=== PATIENT | male | born 1955 | race Caucasian/White ===

== ENCOUNTER 2020-04-04 08:24 | Emergency (ER) | payer OTHER ==
[2020-04-04 08:41] VITALS: BP 149/109; PULSE 100
--- NOTE | 2020-04-04 09:04 | EDM.PDOC ---
ED HPI GENERAL MEDICAL PROBLEM - General Chief Complaint: Flank Pain Stated Complaint: PAIN IN RIGHT LOWER BACK Time Seen by Provider: 04/04/20 08:48 Source of Information: Reports: Patient History Limitations: Reports: No Limitations - History of Present Illness INITIAL COMMENTS - FREE TEXT/NARRATIVE: 64-year-old male developed intense right lower back pain and flank pain 1/2 hours ago, could not get comfortable. He had a normal bowel movement and had no urinary symptoms but the pain was persistent. He finally realized he needed to be evaluated so came into the emergency room but while entering the hospital the pain went away. He now feels "normal". Onset: Sudden Duration: Hour(s): (2-1/2 hours) Location: Reports: Other (Right flank) Severity: Severe Associated Symptoms: Reports: Other (Mild diaphoresis, no nausea or vomiting). Denies: Nausea/Vomiting - Related Data Allergies Allergy/AdvReac Type Severity Reaction Status Date / Time No Known Allergies Allergy Verified 08/20/15 07:51 Home Meds: Home Meds Aspirin 325 mg PO DAILY 05/06/15 [History] Metoprolol Tartrate 100 mg PO BID 08/20/15 [History] Diltiazem HCl [Diltiazem 24Hr ER] 360 mg PO DAILY 04/04/20 [History] Past Medical History Cardiovascular History: Reports: Afib Gastrointestinal History: Reports: Other (See Below) Other Gastrointestinal History: hernia surgery as child Musculoskeletal History: Reports: Fracture - Infectious Disease History Infectious Disease History: Reports: Chicken Pox, Shingles - Past Surgical History HEENT Surgical History: Reports: Other (See Below) GI Surgical History: Reports: Hernia Repair/Other, Other (See Below) Other GI Surgeries/Procedures: Bleeding ulcer Social & Family History - Tobacco Use Tobacco Use Status *Q: Never Tobacco User - Caffeine Use Caffeine Use: Reports: Coffee - Recreational Drug Use Recreational Drug Use: No ED ROS GENERAL - Review of Systems Review Of Systems: See Below Constitutional: Denies: Fever, Chills HEENT: Reports: No Symptoms Respiratory: Denies: Shortness of Breath Cardiovascular: Denies: Chest Pain GI/Abdominal: Denies: Abdominal Pain, Nausea, Vomiting : Reports: Flank Pain (Right side) Musculoskeletal: Reports: Back Pain (Right side) Skin: Reports: No Symptoms Neurological: Denies: Dizziness, Headache ED EXAM,LOWER BACK PAIN/INJURY - Physical Exam Exam: See Below Exam Limited By: No Limitations General Appearance: Alert, No Apparent Distress Head: Atraumatic Respiratory/Chest: No Respiratory Distress Back Exam: Normal Inspection, Other (I cannot reproduce pain with palpation or lateral compression of the chest wall) Course - Vital Signs Last Recorded V/S: Last Vital Signs Temp 97.5 F 04/04/20 08:42 Pulse 100 04/04/20 08:42 Resp 20 04/04/20 08:42 BP 149/109 H 04/04/20 08:42 Pulse Ox 94 L 04/04/20 08:42 - Re-Assessments/Exams Free Text/Narrative Re-Assessment/Exam: 04/04/20 09:03 This patient is a completely resolved and he lives across the [address]. He is going to be discharged without further work-up but if pain recurs and is persistent he will return and a CT of the abdomen pelvis to address for kidney stone or hydronephrosis obtained. Departure - Departure Time of Disposition: 09:22 Disposition: Home, Self-Care 01 Clinical Impression: Acute right flank pain - Discharge Information Instructions: Flank Pain, Adult, [id number] Referrals: PCP,None [Primary Care Provider] - Forms: ED Department Discharge Care Plan Goals: Activity and diet as tolerated, return anytime if symptoms recur and are persistent. Sepsis Event Note (ED) - Evaluation Sepsis Screening Result: No Definite Risk - Focused Exam Vital Signs: Vital Signs Temp Pulse Resp BP Pulse Ox 04/04/20 08:42 97.5 F 100 20 149/109 H 94 L 04/04/20 08:40 97.5 F 100 20 149/109 H 94 L
== END 2020-04-04 09:22 | disposition home or self-care (01) ==
LOC: JP.ED 08:24
DX: R10.9 Unspecified abdominal pain (principal); I48.91 Unspecified atrial fibrillation; Z79.82 Long term (current) use of aspirin; Z79.899 Other long term (current) drug therapy
CPT/HCPCS: 99283

== ENCOUNTER 2020-04-04 18:55 | Emergency (ER) | payer OTHER ==
[2020-04-04 19:21] VITALS: BP 151/97; PULSE 72
[2020-04-04] MEDS ORDERED: Ketorolac 60 MG/2 ML SDV IM ONE (19:25)
[2020-04-04] MEDS ORDERED: Tamsulosin 0.4 MG Cap.ER PO ONE (19:25)
--- NOTE | 2020-04-04 19:37 | EDM.PDOC ---
ED HPI GENERAL MEDICAL PROBLEM - General Chief Complaint: Flank Pain Stated Complaint: MEDICAL Time Seen by Provider: 04/04/20 19:20 Source of Information: Reports: Patient, Old Records History Limitations: Reports: No Limitations - History of Present Illness INITIAL COMMENTS - FREE TEXT/NARRATIVE: 64 yo male presents with R flank pain that began this morning. He was seen in th e ER for this at its onset, but the pain nearly resolved in the ER and it was decided that since he lives just across the street he would be allowed to leave without a work up. He has not had a fever or nausea. No radiation of the pain. He has no dysuria or hematuria. He took acetaminophen 1000 mg at 2 pm and for a short while it seemed to help. He did not take any NSAID's due to his hx of peptic ulcer dz. Onset: Today, Sudden Onset Date: 04/04/20 Duration: Hour(s):, Waxing/Waning Location: Reports: Back (R flank). Denies: Radiates to Quality: Reports: Ache Severity: Moderate Improves with: Reports: Medication Worsens with: Reports: Other (unknown) Context: Reports: Other (See HPI) Associated Symptoms: Denies: Cough, Diaphoresis, Fever/Chills, Nausea/Vomiting, Shortness of Breath Treatments FLIGHT AGENT: Reports: Acetaminophen. Denies: NSAIDS - Related Data Allergies Allergy/AdvReac Type Severity Reaction Status Date / Time No Known Allergies Allergy Verified 04/04/20 19:31 Home Meds: Home Meds Aspirin 325 mg PO DAILY 05/06/15 [History] Metoprolol Tartrate 100 mg PO BID 08/20/15 [History] Diltiazem HCl [Diltiazem 24Hr ER] 360 mg PO DAILY 04/04/20 [History] Past Medical History Cardiovascular History: Reports: Afib Gastrointestinal History: Reports: Other (See Below) Other Gastrointestinal History: hernia surgery as child Musculoskeletal History: Reports: Fracture - Infectious Disease History Infectious Disease History: Reports: Chicken Pox, Shingles - Past Surgical History HEENT Surgical History: Reports: Other (See Below) GI Surgical History: Reports: Hernia Repair/Other, Other (See Below) Other GI Surgeries/Procedures: Bleeding ulcer Social & Family History - Caffeine Use Caffeine Use: Reports: Coffee ED ROS GENERAL - Review of Systems Review Of Systems: See Below Constitutional: Reports: No Symptoms HEENT: Reports: No Symptoms Respiratory: Reports: No Symptoms Cardiovascular: Reports: No Symptoms GI/Abdominal: Reports: No Symptoms : Reports: Flank Pain (right). Denies: Dysuria, Frequency, Hematuria Musculoskeletal: Reports: No Symptoms Skin: Reports: No Symptoms Neurological: Reports: No Symptoms ED EXAM, RENAL/ - Physical Exam Exam: See Below Exam Limited By: No Limitations General Appearance: Alert, WD/WN, No Apparent Distress, Obese Eye Exam: Bilateral Eye: Normal Inspection Ears: Normal External Exam, Normal Canal, Hearing Grossly Normal Nose: Normal Inspection, No Blood Throat/Mouth: Normal Inspection, Normal Lips, Normal Voice, No Airway Compromise Head: Atraumatic, Normocephalic Neck: Normal Inspection Respiratory/Chest: No Respiratory Distress, Lungs Clear, Normal Breath Sounds, No Accessory Muscle Use Cardiovascular: Regular Rate, Rhythm GI/Abdominal: Soft, Non-Tender, No Distention. No: Distended Back Exam: Normal Inspection. No: CVA Tenderness (R), CVA Tenderness (L) Neurological: Alert, Oriented, CN II-XII Intact, Normal Cognition, No Motor/Sensory Deficits Psychiatric: Normal Affect, Normal Mood Skin Exam: Warm, Dry, Intact, Normal Color, No Rash Course - Vital Signs Last Recorded V/S: Last Vital Signs Temp 35.9 C L 04/04/20 19:31 Pulse 72 04/04/20 19:31 Resp 16 04/04/20 19:31 BP 151/97 H 04/04/20 19:31 Pulse Ox 94 L 04/04/20 19:31 - Orders/Labs/Meds Labs: Laboratory Tests 04/04/20 Range/Units 19:36 Urine Color Yellow (YELLOW) Urine Appearance Slightly cloudy A (CLEAR) Urine pH 5.5 (5.0-8.0) Ur Specific Lawrence 1.025 (1.008-1.030) Urine Protein Negative (NEGATIVE) mg/dL Urine Glucose (UA) Negative (NEGATIVE) mg/dL Urine Ketones Negative (NEGATIVE) mg/dL Urine Occult Blood Moderate H (NEGATIVE) Urine Nitrite Negative (NEGATIVE) Urine Bilirubin Negative (NEGATIVE) Urine Urobilinogen 0.2 (0.2-1.0) EU/dL Ur Leukocyte Esterase Negative (NEGATIVE) Urine RBC 30-40 H (0-5) Urine WBC 0-5 (0-5) Ur Epithelial Cells Rare Amorphous Sediment Not seen Urine Bacteria Not seen Urine Mucus Moderate Meds: Medications Discontinued Medications Generic Name Dose Route Start Last Admin Trade Name Juan PRN Reason Stop Dose Admin Ketorolac Tromethamine 60 mg 04/04/20 19:25 04/04/20 19:50 Toradol IM 04/04/20 19:26 60 mg ONETIME ONE Administration Tamsulosin HCl 0.4 mg 04/04/20 19:25 04/04/20 19:51 Flomax PO 04/04/20 19:26 0.4 mg ONETIME ONE Administration - Radiology Interpretation Free Text/Narrative:: CT abd/pelvis without contrast: 2-3 mm distal R ureteral stone + incidental findings CT Results Date: 04/04/20 CT Results Time: 20:24 Departure - Departure Time of Disposition: 20:35 Disposition: Home, Self-Care 01 Condition: Fair Clinical Impression: Renal calculus, right - Discharge Information *PRESCRIPTION DRUG MONITORING PROGRAM REVIEWED*: No *COPY OF PRESCRIPTION DRUG MONITORING REPORT IN PATIENT PARTH: No Instructions: Kidney Stones, [id number] Referrals: PCP,None [Primary Care Provider] - Forms: ED Department Discharge Additional Instructions: strain your urine and save any sediment for testing. Drink ample amounts of fluids so your urine is very light yellow in color. Take Percocet 1-2 every 4-6 hrs as needed for pain relief. F/U with a provider of your choice in the next week or two to be evaluated for the other things that showed up on your CT scan tonight(take your test results along to that appt). Return here as needed. Sepsis Event Note (ED) - Focused Exam Vital Signs: Vital Signs Temp Pulse Resp BP Pulse Ox 04/04/20 19:31 35.9 C L 72 16 151/97 H 94 L 04/04/20 19:19 35.9 C L 72 16 151/97 H 94 L
--- NOTE | 2020-04-04 20:18 | CRLCT ---
INDICATION: Right flank pain TECHNIQUE: CT abdomen and pelvis without contrast. COMPARISON: None available FINDINGS: Lower chest: Minor subsegmental atelectasis. A 5-6 mm right middle lobe nodule along the minor fissure on image 20. Aneurysmal dilatation of the ascending aorta measuring 5.1 x 4.8 cm. Liver: A 4.5 x 4.0 cm right hepatic cyst and a 1.3 cm lateral left hepatic cyst. Spleen: Unremarkable. Pancreas: Unremarkable. Gallbladder and bile ducts: Unremarkable. Adrenal glands: Unremarkable. Kidneys: Mild right hydronephrosis and ureteral dilatation with a 2-3 mm calcification in the distal right ureter, proximal to the UVJ. GI tract: Unremarkable. Appendix is normal. Vascular structures: Mild atherosclerotic changes. Lymph nodes: Unremarkable. Miscellaneous: No significant free fluid or free air. Pelvic Organs: Enlarged prostate. Bladder wall thickening, partially related to underdistention. Bones: Degenerative changes in the spine with anterolisthesis of L5 on S1. Degenerative changes in the hips. An ovoid calcification anterior to the right femoral neck compatible with a loose intra-articular body. IMPRESSION: Mild right obstructive uropathy due to a 2-3 mm calculus in the distal right ureter. Bladder wall thickening. Correlate with urinalysis for cystitis. Hepatic cysts. A 5-6 mm pulmonary nodule. If there are risk factors, follow-up, per the Fleischner Society recommendations. An aneurysmal ascending aorta measuring 5.1 cm. Dictated by Luis Trejo MD @ 04/04/2020 8:17:35 PM Please note that all CT scans at this facility use dose modulation, iterative reconstruction, and/or weight-based dosing when appropriate to reduce radiation dose to as low as reasonably achievable. Dictated by: Luis Trejo MD @ 04/04/2020 20:17:42 (Electronically Signed)
== END 2020-04-04 20:47 | disposition home or self-care (01) ==
LOC: JP.ED 18:55
DX: N13.2 Hydronephrosis with renal and ureteral calculous obstruction (principal); I48.91 Unspecified atrial fibrillation; Z79.82 Long term (current) use of aspirin; Z79.899 Other long term (current) drug therapy
CPT/HCPCS: 74176; 81001; 96372; 99284; A9270; J1885

== ENCOUNTER 2020-05-17 07:01 | Emergency (ER) | payer OTHER ==
[2020-05-17 07:16] VITALS: BP 124/87; PULSE 75
--- NOTE | 2020-05-17 08:33 | EDM.PDOC ---
ED HPI GENERAL MEDICAL PROBLEM - General Chief Complaint: General Stated Complaint: BLOOD IN PHLEGM Time Seen by Provider: 05/17/20 07:40 Source of Information: Reports: Patient, RN History Limitations: Reports: No Limitations - History of Present Illness INITIAL COMMENTS - FREE TEXT/NARRATIVE: This 64-year-old male who lives alone noted that he had phlegm feeling in his throat last night and swallowed it. This morning he had it again and spit out the phlegm and noticed that it was bloody. He does not recall this before. He did not have any coughing or shortness of breath or related symptoms. It is very dry in the air at home. No current trauma to the nose but multiple traumatic events in the past. He is on a aspirin for atrial fibrillation but no blood thinners. No interventions in his teeth or throat or mouth recently. No likely cause other than probably epistaxis. Onset: Other Duration: Hour(s):, Intermittent Location: Reports: Other (Nose and throat) Severity: Mild Improves with: Reports: None Worsens with: Reports: None Associated Symptoms: Reports: No Other Symptoms - Related Data Allergies Allergy/AdvReac Type Severity Reaction Status Date / Time No Known Allergies Allergy Verified 05/17/20 07:21 Home Meds: Home Meds Aspirin 325 mg PO DAILY 05/06/15 [History] Metoprolol Tartrate 100 mg PO BID 08/20/15 [History] Diltiazem HCl [Diltiazem 24Hr ER] 360 mg PO DAILY 04/04/20 [History] Past Medical History Cardiovascular History: Reports: Afib Gastrointestinal History: Reports: Other (See Below) Other Gastrointestinal History: hernia surgery as child Musculoskeletal History: Reports: Fracture - Infectious Disease History Infectious Disease History: Reports: Chicken Pox, Shingles - Past Surgical History HEENT Surgical History: Reports: Other (See Below) Other HEENT Surgeries/Procedures: Jaw surgery GI Surgical History: Reports: Hernia Repair/Other, Other (See Below) Other GI Surgeries/Procedures: Bleeding ulcer Social & Family History - Tobacco Use Tobacco Use Status *Q: Former Tobacco User Used Tobacco, but Quit: Yes Month/Year Tobacco Last Used: 16 - Caffeine Use Caffeine Use: Reports: Coffee ED ROS GENERAL - Review of Systems Review Of Systems: See Below Constitutional: Reports: No Symptoms HEENT: Reports: Other (Probable bloody nose) Respiratory: Reports: No Symptoms Cardiovascular: Reports: No Symptoms Endocrine: Reports: No Symptoms GI/Abdominal: Reports: No Symptoms : Reports: No Symptoms Musculoskeletal: Reports: No Symptoms Skin: Reports: No Symptoms Neurological: Reports: No Symptoms (1 compartment pathology report is a really great algorithm epic with the other positiveUse to be admitted feel I can find no one to care from [facility] who was on the ED engaged) Psychiatric: Reports: No Symptoms Hematologic/Lymphatic: Reports: No Symptoms ED EXAM, GENERAL - Physical Exam Exam: See Below Free Text/Narrative:: Alert cooperative large male in no distress. After taking history it is apparent that this is likely from epistaxis. Nasal speculum inspection of the nares does show 2 tiny areas that he could have had bleeding on the left anterior aspect of the septum but are not bleeding at the moment. I discussed with him the options including nothing at this juncture and he elects to have nothing. Exam Limited By: No Limitations General Appearance: Alert, WD/WN, No Apparent Distress, Mild Distress Ears: Normal External Exam Nose: Other (2 tiny areas in the left Kiesselbach triangle area look like they could have been a source of bleeding but are not bleeding currently.) Throat/Mouth: Normal Inspection, Other (No blood noted in the pharynx) Head: Atraumatic, Normocephalic Neck: Normal Inspection Respiratory/Chest: No Respiratory Distress GI/Abdominal: Other (Very large male) Course - Vital Signs Last Recorded V/S: Last Vital Signs Temp 35.7 C L 05/17/20 07:22 Pulse 75 05/17/20 07:22 Resp 24 H 05/17/20 07:22 BP 124/87 05/17/20 07:22 Pulse Ox 95 05/17/20 07:22 Departure - Departure Time of Disposition: 08:35 Disposition: Home, Self-Care 01 Clinical Impression: Epistaxis - Discharge Information Instructions: Nosebleed, [id number] Referrals: PCP,None [Primary Care Provider] - Additional Instructions: Pinch your nose for 15 minutes if you have recurrent bleeding Sepsis Event Note (ED) - Evaluation Sepsis Screening Result: No Definite Risk - Focused Exam Vital Signs: Vital Signs Temp Pulse Resp BP Pulse Ox 05/17/20 07:22 35.7 C L 75 24 H 124/87 95 05/17/20 07:14 35.7 C L 75 24 H 124/87 95
== END 2020-05-17 08:46 | disposition home or self-care (01) ==
LOC: JP.ED 07:01
DX: R04.0 Epistaxis (principal); I48.91 Unspecified atrial fibrillation; Z79.82 Long term (current) use of aspirin; Z79.899 Other long term (current) drug therapy; Z87.891 Personal history of nicotine dependence
CPT/HCPCS: 99283

== ENCOUNTER 2020-07-18 10:59 | Emergency (ER) | payer OTHER ==
--- NOTE | 2020-07-18 11:43 | EDM.PDOC ---
ED HPI GENERAL MEDICAL PROBLEM - General Chief Complaint: Respiratory Problem Stated Complaint: TROUBLE BREATHING Time Seen by Provider: 07/18/20 11:25 Source of Information: Reports: Patient, Old Records, RN History Limitations: Reports: No Limitations - History of Present Illness INITIAL COMMENTS - FREE TEXT/NARRATIVE: 64 yo male here with SOB for 3 days getting worse. Has been sitting a lot with his feet down over this time interval so they are now more swollen. No fever or cough. Has a pHx of afib and sees a lottery sales clerk in [place], has no primary care provider. Has not missed any of his meds. Is on only ASA for anticoagulation. Can't tell when is in afib. Denies hx of HTN or DM. Onset: Gradual Onset Date: 07/15/20 Duration: Day(s): (3), Getting Worse Location: Reports: Chest Quality: Reports: Other (no pain) Severity: Moderate Improves with: Reports: Rest Worsens with: Reports: Movement Context: Reports: Other (See HPI) Associated Symptoms: Reports: Shortness of Breath. Denies: Chest Pain, Cough, Fever/Chills Treatments CHAR FILTER TANK TENDER HEAD: Reports: Other (see below) (none) - Related Data Allergies Allergy/AdvReac Type Severity Reaction Status Date / Time No Known Allergies Allergy Verified 07/18/20 11:18 Home Meds: Home Meds Aspirin 325 mg PO DAILY 05/06/15 [History] Metoprolol Tartrate 100 mg PO BID 08/20/15 [History] Diltiazem HCl [Diltiazem 24Hr ER] 360 mg PO DAILY 04/04/20 [History] Acetaminophen/Diphenhydramine [Tylenol Pm Ex-Strength Caplet] 2 tab PO BEDTIME 07/18/20 [History] Past Medical History HEENT History: Reports: Impaired Vision Cardiovascular History: Reports: Afib Gastrointestinal History: Reports: Other (See Below) Other Gastrointestinal History: hernia surgery as child Musculoskeletal History: Reports: Fracture Neurological History: Reports: Concussion Endocrine/Metabolic History: Reports: Obesity/BMI 30+ - Infectious Disease History Infectious Disease History: Reports: Chicken Pox, Shingles - Past Surgical History Head Surgeries/Procedures: Reports: None HEENT Surgical History: Reports: Other (See Below) Other HEENT Surgeries/Procedures: Jaw surgery Cardiovascular Surgical History: Reports: None GI Surgical History: Reports: Hernia Repair/Other, Other (See Below) Other GI Surgeries/Procedures: Bleeding ulcer Endocrine Surgical History: Reports: None Neurological Surgical History: Reports: None Musculoskeletal Surgical History: Reports: None Dermatological Surgical History: Reports: None Social & Family History - Tobacco Use Tobacco Use Status *Q: Former Tobacco User Used Tobacco, but Quit: Yes Month/Year Tobacco Last Used: 2002 Second Hand Smoke Exposure: No - Caffeine Use Caffeine Use: Reports: Coffee - Recreational Drug Use Recreational Drug Use: No ED ROS GENERAL - Review of Systems Review Of Systems: See Below Constitutional: Reports: No Symptoms HEENT: Reports: No Symptoms Respiratory: Reports: Shortness of Breath. Denies: Wheezing, Pleuritic Chest Pain, Cough, Sputum, Hemoptysis Cardiovascular: Reports: Dyspnea on Exertion, Edema (both legs). Denies: Chest Pain GI/Abdominal: Reports: No Symptoms : Reports: No Symptoms Musculoskeletal: Reports: No Symptoms Skin: Reports: No Symptoms Neurological: Reports: No Symptoms Psychiatric: Reports: No Symptoms ED EXAM, GENERAL - Physical Exam Exam: See Below Exam Limited By: No Limitations General Appearance: Alert, WD/WN, Mild Distress, Obese Eye Exam: Bilateral Eye: Normal Inspection Ears: Normal External Exam, Normal Canal, Hearing Grossly Normal Ear Exam: Bilateral Ear: Auricle Normal, Canal Normal Nose: Normal Inspection, No Blood Throat/Mouth: Normal Inspection, Normal Lips, Normal Oropharynx, Normal Voice, No Airway Compromise Head: Atraumatic, Normocephalic Neck: Normal Inspection Respiratory/Chest: No Respiratory Distress, Lungs Clear, Normal Breath Sounds, No Accessory Muscle Use Cardiovascular: Tachycardia, Irregularly Irregular. No: No Edema GI/Abdominal: Normal Bowel Sounds, Soft, Non-Tender, No Distention Back Exam: Normal Inspection. No: CVA Tenderness (R), CVA Tenderness (L) Extremities: Normal Inspection, Normal Range of Motion, Non-Tender, Pedal Edema. No: No Pedal Edema Neurological: Alert, Oriented, CN II-XII Intact, Normal Cognition, No Motor/Sensory Deficits Psychiatric: Normal Affect, Normal Mood Skin Exam: Warm, Dry, Intact, Normal Color, Rash (L axilla, not new). No: No Rash Course - Vital Signs Text/Narrative:: Dr. Herbert called @ 1224h Case discussed with [facility], Dr. Thibodeaux, at 1300h Last Recorded V/S: Last Vital Signs Temp 36.5 C 07/18/20 11:19 Pulse 120 H 07/18/20 12:41 Resp 26 H 07/18/20 12:41 BP 113/69 07/18/20 12:41 Pulse Ox 88 L 07/18/20 12:41 - Orders/Labs/Meds Orders: Active Orders 24 hr Category Date Time Status Cardiac Monitoring [RC] .As Directed Care 07/18/20 11:28 Active Oxygen Therapy Adult [Oxygen Therapy, ED] [RC] Care 07/18/20 11:37 Active ASDIRECTED Sodium Chloride 0.9% [Saline Flush] Med 07/18/20 11:36 Active 10 ml FLUSH ASDIRECTED PRN Saline Lock Insert [OM.PC] Routine Oth 07/18/20 11:36 Ordered Medication Orders Sodium Chloride (Saline Flush) 10 ml FLUSH ASDIRECTED PRN PRN Reason: Keep Vein Open Last Admin: 07/18/20 11:47 Dose: 10 ml Documented by: ISRAEL Labs: Laboratory Tests 07/18/20 07/18/20 Range/Units 11:45 11:45 WBC 11.2 H (4.5-11.0) K/uL RBC 5.61 (4.30-5.90) M/uL Hgb 16.0 H (12.0-15.0) g/dL Hct 50.3 (40.0-54.0) % MCV 90 (80-98) fL MCH 29 (27-31) pg MCHC 32 (32-36) % Plt Count 300 (150-400) K/uL Sodium 137 L (140-148) mmol/L Potassium 4.0 (3.6-5.2) mmol/L Chloride 101 (100-108) mmol/L Carbon Dioxide 22 (21-32) mmol/L Anion Gap 18.0 H (5.0-14.0) mmol/L BUN 14 (7-18) mg/dL Creatinine 1.0 (0.8-1.3) mg/dL Est Cr Clr Drug Dosing 89.19 mL/min Estimated GFR (MDRD) > 60 (>60) Glucose 128 H (74-106) mg/dL Calcium 8.3 L (8.5-10.1) mg/dL Troponin I < 0.017 (0.000-0.056) ng/mL Meds: Medications Generic Name Dose Route Start Last Admin Trade Name Freq PRN Reason Stop Dose Admin Sodium Chloride 10 ml 07/18/20 11:36 07/18/20 11:47 Saline Flush FLUSH 10 ml ASDIRECTED PRN Administration Keep Vein Open Departure - Departure Time of Disposition: 13:20 Disposition: DC/Tfer to Acute Hospital 02 Condition: Fair Clinical Impression: Atrial fibrillation with RVR Obesity Qualifiers: Obesity type: due to excess calories Obesity classification: adult class 3 (BMI >= 40) Serious obesity comorbidity presence: without serious comorbidity Body mass index: BMI 45.0-49.9 Qualified Code(s): E66.01 - Morbid (severe) obesity due to excess calories - Discharge Information Referrals: PCP,None [Primary Care Provider] - Forms: ED Department Discharge Sepsis Event Note (ED) - Evaluation Sepsis Screening Result: No Definite Risk - Focused Exam Vital Signs: Vital Signs Temp Pulse Resp BP Pulse Ox 07/18/20 12:41 120 H 26 H 113/69 88 L 07/18/20 11:19 36.5 C 77 20 125/86 90 L 07/18/20 11:15 36.5 C 77 20 125/86 90 L - My Orders Last 24 Hours: My Active Orders 07/18/20 11:28 Cardiac Monitoring [RC] .As Directed 07/18/20 11:36 Sodium Chloride 0.9% [Saline Flush] 10 ml FLUSH ASDIRECTED PRN Saline Lock Insert [OM.PC] Routine 07/18/20 11:37 Oxygen Therapy Adult [Oxygen Therapy, ED] [RC] ASDIRECTED - Assessment/Plan Last 24 Hours: My Active Orders 07/18/20 11:28 Cardiac Monitoring [RC] .As Directed 07/18/20 11:36 Sodium Chloride 0.9% [Saline Flush] 10 ml FLUSH ASDIRECTED PRN Saline Lock Insert [OM.PC] Routine 07/18/20 11:37 Oxygen Therapy Adult [Oxygen Therapy, ED] [RC] ASDIRECTED
[2020-07-18] MEDS: Sodium Chloride 0.9% 10 ML Syringe FLUSH PRN ×2 (11:47→13:34)
[2020-07-18 12:56] VITALS: BP 113/69
[2020-07-18] MEDS ORDERED: Heparin Sodium 5,000 Units/ML Vial IVPUSH ONE (13:06)
[2020-07-18] MEDS ORDERED: Heparin Sodium/D5W 25,000 UNITS/500 ML BAG IV STA (13:06)
[2020-07-18] MEDS ORDERED: Furosemide 40 MG/4 ML VIAL IVPUSH ONE (13:08)
[2020-07-18] MEDS ORDERED: Digoxin 500 MCG/2 ML Amp IVPUSH ONE (13:12)
[2020-07-18 13:30] VITALS: PULSE 131
== END 2020-07-18 14:41 ==
LOC: JP.ED 10:59
DX: I48.91 Unspecified atrial fibrillation (principal); E66.01 Morbid (severe) obesity due to excess calories; Z20.822 Contact with and (suspected) exposure to COVID-19; Z79.82 Long term (current) use of aspirin; Z79.899 Other long term (current) drug therapy; Z87.891 Personal history of nicotine dependence; Z68.42 Body mass index [BMI] 45.0-49.9, adult
CPT/HCPCS: 36415; 80048; 84484; 85027; 96365; 96375; 99285; J1160; J1644; J1940

== ENCOUNTER → 2025-02-15 | Emergency (ER) | payer MEDICARE, OTHER | LOC: JP.ED 05:05 | DX: Z53.21 Procedure and treatment not carried out due to patient leaving prior to being seen by health care provider (principal) ==